=== PATIENT | male | born 1940 | race Caucasian/White ===

== ENCOUNTER 2016-03-30 17:31 | Emergency (ER) | payer OTHER, MEDICARE ==
[~2016-03-30] VITALS: Ht 188 cm; Wt 102.1 kg
--- NOTE | ~2016-03-30 | EKG ---
[place] [address] [facility] [place] [address] ELECTROCARDIOGRAM REPORT Name: DARLIN ZHOU DALJITCAMDEN Room #: DEP AYAAN Jacobs#: [id number] Admission: 03/30/16 Attend Phys: Discharge: 03/30/16 Date of : 42 Report #: [id number] THIS REPORT FOR: //name// [facility] ED Test Date: 2016-03-30 Test Time: 17:30:26 Pat Name: DARLIN ZHOU Department: Room: Gender: Mapper: Margarette HENDERSON : 1940 Requested By: Yoly Antunez Order Number: [id number] MD: Tobin Pritchett Measurements Intervals [place] Rate: 68 P: 46 LA: 205 QRS: -40 QRSD: 104 T: 40 QT: 412 QTc: 439 Interpretive Statements Sinus rhythm Left anterior fascicular block Electronically Signed On 03-31-2016 8:08:58 [employer]TITUDE TEST GRADER by Tobin Pritchett [email or web address] <ELECTRONICALLY SIGNED> By: Tobin Pritchett MD 03/31/16 0808 1730 1730 Tobin Pritchett MD /TANISHA
[~2016-03-30 17:31] MED LIST: ASPIRIN325 PO; CRESTOR20 MG PO; FISH OIL SOFTG1 EACH PO; IBUPROFEN 600600 M1 PO; IBUPROFEN200 M2 PO; MULTIVITAMINS; NORCO 5-325 TA1 EACH PO; TRICOR; TRILIPIX135 MG PO; ULTRAM 50MG TAB50 MG PO; ZOCOR
[2016-03-30 17:59] LABS: ABSOLUTE NEUTROPHILS 4.1 thou/uL (1.4-8.2); BASOPHILS 0.2 % (0.0-2.0); EOSINOPHILS 0.6 % (0.0-3.0); HEMATOCRIT 42.9 % (42.0-52.0); HEMOGLOBIN 14.5 gm/dL (14.0-18.0); MCH 31.5 pg (26.0-34.0); MCHC 33.7 % (28.0-37.0); MCV 93.4 fL (80.0-100.0); MONOCYTES 10.4 % (1.0-8.0); PLATELET COUNT 195 thou/uL (150-400); POLYS 63.8 % (36.0-66.0); RBC 4.59 mil/uL (4.50-6.00); RDW 14.2 % (10.5-14.5); WBC 6.4 thou/uL (4.0-11.0)
[2016-03-30 18:15] LABS: MANUAL DIFF NO
[2016-03-30 18:16] LABS: ANION GAP 12 mmol/L (7-16); BUN 18 mg/dL (7-18); CALCIUM 9.3 mg/dL (8.5-10.1); CHLORIDE 105 mmol/L (98-107); CO2 23 mmol/L (21-32); CREATININE 1.5 mg/dL (0.6-1.3); GLUCOSE 120 mg/dL (70-99); POTASSIUM 4.1 mmol/L (3.5-5.1); SODIUM 140 mmol/L (136-145)
[2016-03-30 18:17] LABS: APTT 24.6 Seconds (24.5-32.8); INR 1.1
[2016-03-30] MEDS ORDERED: ASPIR 8181 MG PO (18:21)
[2016-03-30] MEDS ORDERED: MELATONIN3 MG PO (18:21)
[2016-03-30 18:25] LABS: ALKALINE PHOSPHATASE 42 U/L (46-116); SGOT 27 U/L (15-37); SGPT 37 U/L (30-65); TOTAL BILIRUBIN 0.4 mg/dL (<0.1-1.0); TOTAL PROTEIN 7.4 g/dL (6.4-8.2); TROPONIN-I < 0.04 ng/mL (<0.04-0.07)
[2016-03-30 21:00] VITALS: BP 161/75
== END 2016-03-30 23:54 | disposition home or self-care (01) ==
LOC: ER 17:31
PROVIDERS: Emergency Medicine
DX: G45.9 Transient cerebral ischemic attack, unspecified (principal); Z86.73 Personal history of transient ischemic attack (TIA), and cerebral infarction without residual deficits

== ENCOUNTER 2018-02-25 15:55 | Emergency (ER) | payer OTHER, MEDICARE ==
[~2018-02-25] VITALS: Ht 188 cm; Wt 99.8 kg
[~2018-02-25 15:55] MED LIST changes: +ASPIR 8181 MG PO; +MELATONIN3 MG PO
[2018-02-25 16:22] LABS: ABSOLUTE NEUTROPHILS 2.6 thou/uL (1.4-8.2); BASOPHILS 0.6 % (0.0-2.0); EOSINOPHILS 1.9 % (0.0-3.0); HEMATOCRIT 43.7 % (42.0-52.0); HEMOGLOBIN 15.2 gm/dL (14.0-18.0); LYMPHOCYTES 40.2 % (24.0-44.0); MCH 32.1 pg (26.0-34.0); MCHC 34.7 g/dL (28.0-37.0); MCV 92.6 fL (80.0-100.0); MONOCYTES 11.2 % (1.0-8.0); PLATELET COUNT 201 thou/uL (150-400); POLYS 46.1 % (36.0-66.0); RBC 4.72 mil/uL (4.50-6.00); WBC 5.7 thou/uL (4.0-11.0)
[2018-02-25 16:35] LABS: APTT 23.9 Seconds (24.5-32.8); PROTIME 10.7 Seconds (9.3-11.4)
[2018-02-25 16:39] LABS: CALCIUM 9.6 mg/dL (8.5-10.1); CREATININE 1.4 mg/dL (0.7-1.3)
[2018-02-25] MEDS ORDERED: ZOCOR 20 MG TAB20 M1 PO (17:17)
[2018-02-25 19:15] VITALS: BP 154/90
== END 2018-02-25 19:18 | disposition home or self-care (01) ==
LOC: ER 15:55
PROVIDERS: Emergency Medicine
DX: R51 Headache (principal); Z86.73 Personal history of transient ischemic attack (TIA), and cerebral infarction without residual deficits

== ENCOUNTER 2021-01-13 01:27 | Inpatient (IN) | payer OTHER, MEDICARE ==
[2021-01-13] VITALS (7 sets, daily range): BP systolic 119–158; BP diastolic 62–90
[~2021-01-13] VITALS: Ht 185.4 cm; Wt 100.3 kg
--- NOTE | ~2021-01-13 | HC ---
[facility] [place] [address] CONSULTATION Name: ALLAN ZHOU Room #: 207-P ADM IN M.R.#: [id number] Admission: 01/13/21 Attend Phys: Allan Salinas MD Discharge: Date of : 42 Report #: [id number] THIS REPORT FOR: cc: [facility] - Clinic physician unknown [facility] - Clinic physician unknown Irving James MD ~ DATE OF SERVICE: 01/13/2021 HISTORY OF PRESENT ILLNESS: This is a 80-year-old male patient who was evaluated by me for an episode of speech difficulty. He also had headache afterward. His symptoms are somewhat nonspecific. He said he has had these symptoms before and he was admitted here. I do not see any admission records, but he was seen in the Emergency Room by Emergency Room physician, Dr. Land in the past. Even at that time, he has indicated that he had TIA even prior to that with the speech difficulty and he has headache along with that. He had an MRI of the brain with and without contrast in 2007 and he had an MRA at that time. He had CT angiogram of the head and neck at this time and basically that shows mild disease, but nothing significant. He says he did not have any history of migraine before. REVIEW OF SYSTEMS: Positive for similar episodes in the past. Does have a history of hypertension and he says he takes statin. Otherwise, he says he is healthy. He is not having any eye, ENT, cardiac, respiratory, GI, , musculoskeletal, constitutional, dermatological, hematological, psychiatric, throat, allergic symptom associated with present symptomatology. PAST MEDICAL HISTORY: Positive for similar episode multiple times. FAMILY HISTORY: Negative for migraine. SOCIAL HISTORY: He says he does not smoke and he does not drink alcohol on a regular basis. PHYSICAL EXAMINATION: The patient's examination indicate he is alert and responsive. His speech, concentration, fund of knowledge and memory is at his baseline. Cranial nerve examination 2-12 looks unremarkable. The patient has a symmetrical strength, sensation, reflexes and tones in all 4 extremities. No meningeal sign. I could not look at the patient's fundus. Cardiorespiratory examination appear unremarkable. His pulses are somewhat difficult to feel, but does appear to be palpable. There is no thyroid mass. There is no carotid bruit. His blood pressure is 123/71, respirations 21, pulse is 65, temperature is 98.4. LABORATORY DATA: Indicate a white count of 7.1. The patient takes an aspirin at home. [address] [address] CONSULTATION Name: ALLAN ZHOU Room #: 207-P ADM IN ..#: [id number] Admission: 01/13/21 Attend Phys: Allan Salinas MD Discharge: Date of : 42 Report #: [id number] IMPRESSION: Transient ischemic attack, which may be secondary to mild atherosclerotic disease he has, but it can also be secondary to hemiplegic migraine. RECOMMENDATIONS: 1. MRI is scheduled for tomorrow and to look at it. 2. I will put a sed rate for tomorrow. He did have a sed rate in 2009. It was trace high, but it looks like the symptoms are longstanding and if his workup is unremarkable, especially if MRI does not show any stroke, then he can be dismissed from neurological perspective to be followed up with us as an outpatient. He never had any echocardiogram here and I did order an echocardiogram with a bubble study. Thank you very much for this referral. By: 1220 25 Irving James MD /nt
[~2021-01-13 01:27] MED LIST changes: +ZOCOR 20 MG TAB20 M1 PO
--- NOTE | 2021-01-13 01:37 | NUR ---
CODE STROKE ACTIVATED, KINJAL YEMI ASSESSING PATIENT AT THIS TIME.
[2021-01-13] MEDS ORDERED: LIPITOR20 MG PO (01:38)
[2021-01-13 01:49] LABS: ABSOLUTE NEUTROPHILS 5.1 thou/uL (1.4-8.2); BASOPHILS 0.4 % (0.0-2.0); EOSINOPHILS 1.6 % (0.0-3.0); HEMATOCRIT 41.6 % (42.0-52.0); HEMOGLOBIN 14.2 gm/dL (14.0-18.0); LYMPHOCYTES 17.9 % (24.0-44.0); MCH 31.7 pg (26.0-34.0); MCHC 34.1 g/dL (28.0-37.0); MONOCYTES 7.9 % (1.0-8.0); PLATELET COUNT 198 thou/uL (150-400); POLYS 72.2 % (36.0-66.0); RBC 4.47 mil/uL (4.50-6.00); RDW 14.3 % (10.5-14.5); WBC 7.1 thou/uL (4.0-11.0)
[2021-01-13 01:55] LABS: CALCIUM 9.4 mg/dL (8.5-10.1); CREATININE 1.4 mg/dL (0.7-1.3)
[2021-01-13 02:04] LABS: APTT 24.7 Seconds (24.5-32.8); INR 1.04; PROTIME 11.3 Seconds (10.5-12.1)
[2021-01-13 02:05] LABS: ALBUMIN 3.9 g/dL (3.4-5.0); TOTAL BILIRUBIN 0.4 mg/dL (0.2-1.0); TOTAL PROTEIN 7.3 g/dL (6.4-8.2)
--- NOTE | 2021-01-13 04:45 | NUR ---
PT ASSISTED TO PARKING LOT FOR RIDE HOME
--- NOTE | 2021-01-13 06:32 | NUR ---
0610 PATIENT ARRIVED FROM ER PER CART. WALKED TO BED AND BATHROOM WITH STEADY GAIT. NO SLURRED SPEECH AND SRIVASTAVA WELL. DENIES PRESENT COMPLAINTS. PLACED ON MONITOR. VSS. CONTINUE TO ASSES.
--- NOTE | 2021-01-13 07:37 | EKG ---
[address] [facility] [address] ELECTROCARDIOGRAM REPORT Name: ALLAN ZHOU MOISÉS Room #: 207- ADM IN M.R.#: [id number] Admission: 01/13/21 Attend Phys: Allan Salinas MD Discharge: Date of : 42 Report #: [id number] [facility] ED Test Date: 2021-01-13 Test Time: 02:06:39 Pat Name: ALLAN ZHOU Department: Room: [facility] Gender: M Medication Reconciliation Technician: : 1940 Requested By: Keyur Strong Order Number: [id number] MD: Jalil Perez Measurements Intervals [place] Rate: 68 P: 40 MN: 232 QRS: -37 QRSD: 100 T: 18 QT: 416 QTc: 443 Interpretive Statements Sinus rhythm Prolonged MN interval Left axis deviation RSR' in V1 or V2, probably normal variant Compared to ECG 03/30/2016 17:30:26 First degree AV block now present Left-axis deviation now present RSR' in V1 or V2 now present Left anterior fascicular block no longer present Electronically Signed On 01-13-2021 7:37:21 CDT by Jalil Perez [email or web address] <ELECTRONICALLY SIGNED> By: Jalil Perez MD, FACC 01/13/2137 5 5 Jalil Perez MD, FAC /EPI
--- NOTE | 2021-01-13 18:13 | NUR ---
PT UP TO CHAIR AND AROUND ROOM TAKING IN GOOD PO. NO NEUROLOGICAL SYMPTOMS NOTED TODAY. WILL CONTINUE TO ASSESS.
[2021-01-14 04:05] LABS: GLYCOHEMOGLOBIN (HGB A1C) 6.7 % (4.8-5.6)
[2021-01-14 04:27] VITALS: BP 134/92
[2021-01-14 04:50] LABS: ANION GAP 10 mmol/L (7-16); BUN 20 mg/dL (7-18); CALCIUM 9.1 mg/dL (8.5-10.1); CHLORIDE 106 mmol/L (98-107); CHOLESTEROL 109 mg/dL (<200); CO2 24 mmol/L (21-32); CREATININE 1.4 mg/dL (0.7-1.3); GLUCOSE 130 mg/dL (74-106); HDL CHOLESTEROL 25 mg/dL (>40); LDL CHOLESTEROL 51 mg/dL (<100); POTASSIUM 3.9 mmol/L (3.5-5.1); SODIUM 140 mmol/L (136-145); TC:HDL 4.4 Ratio (Not establshd); TRIGLYCERIDE 168 mg/dL (<150); VLDL 34 mg/dL (<40)
[2021-01-14 04:53] LABS: SERUM ASSESSMENT Clear
--- NOTE | 2021-01-14 06:02 | NUR ---
SLEPT MOST OF SHIFT. UP AD JA. PLAN FOR POSSIBLE DISCHARGE HOME PAST MRI. WORKING ON GOALS AND PLAN OF CARE FOR NOC. CONTINUE TO ASSES CLOSELY.
[2021-01-14 09:05] VITALS: BP 145/77
--- NOTE | 2021-01-14 09:44 | NUR ---
Assumed care of pt this AM. Pt is A&O x4, on 2L NC. ST on the monitor. NPO since midnight for replacement of nephrostomy tubes today. Meds given crushed in pudding. High fall precautions in place; pt impulsive/forgetful. CIWA protocol. Will continue to monitor.
--- NOTE | 2021-01-14 10:27 | NUR ---
Assumed care of pt this AM. Pt A&O x4, on RA. Denies any chest pain. SR 1AVB on the monitor. Plan for MRI & US carotid today with possible discharge. NIH brief Q 4hr which so far has been negative. Will continue to assess pt needs.
--- NOTE | 2021-01-14 10:38 | NUR ---
VARIANCE NOTE: ORDERS RECEIVED FOR O.T. EVAL AND TREAT AFTER PT EXPERIENCING TIA-SYMPTOMS. ATTEMPTED TO SEE PT FOR O.T. EVAL, AND PT IMMEDIATELY SAYING "NO". EXPLAINED TO PT O.T. ROLE, AND PT CONFIRMING HAVING NO CONCERNS FOR RETURN HOME, PLANNING TO DRIVE HIMSELF HOME [place] WHEN STATES IS OKAY, AND JUST AWAITING MRI PRIOR TO DISCHARGE. PT HAVING MEDICINE RELATED QUESTIONS, PASSED ON TO NURSING. PT HAS BEEN UP AD JA, AND NO RESIDUAL SYMPTOMS AT THIS TIME. NO ACUTE O.T. INDICATED, AND PT IN AGREEMENT TO HAVE O.T. RECONSULTED IF ANY SYMPTOMS ARISE.
--- NOTE | 2021-01-14 12:16 | 2DMMODE ---
[facility] [address] [facility] [place] [address] 2 D/M-MODE ECHOCARDIOGRAM Name: DARLIN ZHOU Room #: 207-P ADM IN M.R.#: [id number] Admission: 01/13/21 Attend Phys: Jacqui Virk Discharge: Date of : 42 Report #: [id number] THIS REPORT FOR: cc: [facility] - Clinic physician unknown [facility] - Clinic physician unknown Jalil Perez MD [facility] ~ APPROVED REPORT Study performed: 01/14/2021 10:36:37 EXAM: Comprehensive 2D, Doppler, and color-flow Echocardiogram Patient Location: Bedside Room #: 207 Status: routine BSA: 2.24 HR: 75 bpm BP: 145/77 mmHg Rhythm: NSR Other Information Study Quality: Good Indications CVA/TIA Hypertension/HDD Echo Enhancing Agent Indication: Rule out Shunt Agent(s) / Amount(s) Used: Agitated Saline 7 cc 2D Dimensions IVSd: 12.16 (7-11mm) LVOT Diam: 23.48 (18-24mm) LVDd: 54.31 mm PWd: 12.36 (7-11mm) Ascending Ao: 49.49 (22-36mm) LVDs: 38.34 (25-40mm) Left Atrium: 27.71 (27-40mm) Aortic Root: 48.91 mm Aortic Valve AoV Peak Vince.: 1.45 m/s AO Peak Gr.: 8.37 mmHg LVOT Max P.74 mmHg LVOT Max V: 1.20 m/s LEODAN Vmax: 3.58 cm2 AI Vmax: 4.42 m/s [facility] [address] [place] [address] 2 D/M-MODE ECHOCARDIOGRAM Name: ABELARDODARLIN MOISÉS Room #: 207-P [facility] IN ..#: [id number] Admission: 01/13/21 Attend Phys: Jacqui Pretty Discharge: Date of : 42 Report #: [id number] AI [place]: 2.47 m/s2 AI PHT: 519.38 ms Mitral Valve E/A Ratio: 0.8 MV Decel. Time: 348.59 ms MV E Max Vince.: 0.58 m/s MV A Vince.: 0.77 m/s MV PHT: 101.09 ms IVRT: 170.70 ms Pulmonary Valve PV Peak Vince.: 1.16 m/s PV Peak Gr.: 5.41 mmHg Pulmonary Vein P Vein S: 0.33 m/s P Vein A: 0.22 m/s P Vein D: 0.25 m/s P Vein A Dur.: 106.1 msec P Vein S/D Ratio: 1.32 Tricuspid Valve TR Peak Vince.: 2.68 m/s TR Peak Gr.: 28.76 mmHg PA Pressure: 29.00 mmHg Left Ventricle The left ventricle is normal size. Mild concentric left ventricular hypertrophy. The left ventricular systolic function is normal. The left ventricular ejection fraction is within the normal range. LVEF is 55-60%. Grade I - abnormal relaxation pattern. Right Ventricle The right ventricle is normal size. The right ventricular systolic function is normal. Atria The left atrium size is normal. Interatrial septum is intact without evidence of ASD or PFO. The right atrium size is normal. Aortic Valve The aortic valve is normal in structure. Mild aortic regurgitation. There is no aortic valvular stenosis. Mitral Valve The mitral valve is normal in structure. There is no mitral valve regurgitation noted. No evidence of mitral valve stenosis. [facility] [address] [address] 2 D/M-MODE ECHOCARDIOGRAM Name: DARLIN ZHOU Room #: 207-P [facility] IN M.R.#: [id number] Admission: 01/13/21 Attend Phys: Jacqui Pretty Discharge: Date of : 42 Report #: [id number] Tricuspid Valve The tricuspid valve is normal in structure. There is trace tricuspid regurgitation. Estimated PAP 29 mmHg plus the right atrial pressure There is mild pulmonary hypertension. Pulmonic Valve The pulmonary valve is normal in structure. There is no pulmonic valvular regurgitation. Great Vessels Aortic root is dilated. The ascending aorta is dilated at 5cm IVC is not well visualized. Pericardium There is no pericardial effusion. <Conclusion> Normal left ventricle size with mild concentric hypertrophy Ejection fraction 50-60% Normal right ventricular size/function Normal atrial size Mild aortic valve insufficiency Normal mitral valve structure and function Mild tricuspid valve insufficiency Pulmonary systolic pressure estimated 29 mmHg No pericardial effusion Normal aortic root size <ELECTRONICALLY SIGNED> By: Jalil Perez MD, FACC 01/14/211215 15 15 Jalil Perez MD, FACC /INF
[2021-01-14 12:31] VITALS: BP 141/80
[2021-01-14 16:30] VITALS: BP 140/79
--- NOTE | 2021-01-14 17:04 | NUR ---
met with patient who admits with slurred speech. Patient reports he feels back to baseline. Patient resdies at home with . All needs on one level. Patient independent with adls and self care. patient hopeful to dc home in am. ambulated 400 feet with therapy. Patient has PCP and health insurance. Anticipate no needs at dc.
[2021-01-14 19:48] VITALS: BP 142/82
--- NOTE | 2021-01-15 04:16 | NUR ---
RECEIVED PATIENT AT 1900H.PATIENT IS ALERT AND ORIENTED X4.ON ROOM AIR BREATHING SPONTANEOUSLY.NOT IN PAIN OR DISTRESS.FALL OREVENTION MEASURES MAINTAINED.ALL NEEDS ATTENDED.TO CONTINOUSLY MONITOR.
[2021-01-15 04:41] VITALS: BP 153/94
[2021-01-15 08:43] VITALS: BP 159/93
[2021-01-15] MEDS ORDERED: METFORMIN HCL500 M3 PO (08:49)
[2021-01-15] MEDS ORDERED: NORVASC5 MG PO (08:53)
[2021-01-15] MEDS ORDERED: ASPIRIN EC325 M1 PO (08:53)
[2021-01-15 11:07] VITALS: BP 159/93
--- NOTE | 2021-01-15 11:53 | NUR ---
TOOK OVER PATIENT AT 0700. PATIENT RESTING IN BED AT THIS TIME. PATIENT ON ROOM AIR; DENIES SOA. POTENTIAL TO DISCHARGE TODAY. INSTRUMENT STERILIZER CAME THIS MORNING TO DISCUSS DIABETIC DIET AND GLUCOSE MONITORING AT HOME. PATIENT DENIES ANY NEEDS AT THIS TIME. AGREEABLE TO DISCHARGE PLAN; REVIEWED NEW MEDICATIONS WITH PATIENT AND HE WILL PICK THEM UP AT THE PHARMACY. PATIENT DENIES PAIN, SOA, DIZZINESS, FATIGUE, NAUSEA OR VOMITING. PATIENT DISCHARGED VIA PERSONAL VEHICLE WITH NURSING STAFF PRESENT.
== END 2021-01-15 12:48 | disposition home or self-care (01) | DRG 69 ==
LOC: ER 01:27 → EROBS 03:55 → 2N 03:55
PROVIDERS: Emergency Medicine; Nurse Practitioner Family; Psychiatry & Neurology Neuromuscular Medicine; ADMIT Hospitalist; ATTEND Hospitalist
DX: G45.9 Transient cerebral ischemic attack, unspecified (principal); Z20.822 Contact with and (suspected) exposure to COVID-19; R47.81 Slurred speech; E78.5 Hyperlipidemia, unspecified; Z60.2 Problems related to living alone; R53.81 Other malaise; N18.30 Chronic kidney disease, stage 3 unspecified; E11.22 Type 2 diabetes mellitus with diabetic chronic kidney disease; E78.00 Pure hypercholesterolemia, unspecified; I12.9 Hypertensive chronic kidney disease with stage 1 through stage 4 chronic kidney disease, or unspecified chronic kidney disease; Z87.891 Personal history of nicotine dependence; Z79.82 Long term (current) use of aspirin; Z79.899 Other long term (current) drug therapy
CPT/HCPCS: 10081